=== PATIENT | female | born 1940 | race Hispanic/Latino ===

== ENCOUNTER → 2018-07-13 | Outpatient (CLI) | payer MEDICARE | END | disposition home or self-care (01) | LOC: RAH 15:38 | PROVIDERS: ATTEND Nurse Practitioner Family | DX: R05 Cough (principal) | CPT/HCPCS: 71046 ==

== ENCOUNTER → 2018-10-01 | Outpatient (CLI) | payer MEDICARE | END | disposition home or self-care (01) | LOC: RAH 16:40 | PROVIDERS: ATTEND Nurse Practitioner Family | DX: R05 Cough (principal); I70.0 Atherosclerosis of aorta; M47.814 Spondylosis without myelopathy or radiculopathy, thoracic region | CPT/HCPCS: 71045 ==

== ENCOUNTER 2020-09-04 10:56 | Inpatient (IN) | payer MEDICARE ==
[~2020-09-04] VITALS: Ht 157.5 cm; Wt 76.9 kg
[~2020-09-04 10:56] MED LIST: ALBU8.5H8 IH; BENZ-51 PO; BUDE10.2 IH; SERT25TA5 PO
[2020-09-04 11:37] LABS: BASOPHILS % (AUTO) 0.4 % (0.0-5.0); EOSINOPHILS % (AUTO) 2.8 % (0.0-8.0); HEMATOCRIT 38.5 % (36-48); LYMPHOCYTES % (AUTO) 12.7 % (21.0-51.0); MEAN CORPUSCULAR HGB CONC 30.4 g/dL (32.0-36.0); MEAN CORPUSCULAR VOLUME 95.5 fL (79-99); MONOCYTES % (AUTO) 5.6 % (3.0-13.0); NEUTROPHILS % (AUTO) 77.6 % (40.0-77.0); PLATELET COUNT (AUTO) 143 K/uL (130-400); RED BLOOD CELL COUNT(AUTO) 4.03 MIL/uL (4.00-5.50); RED CELL DISTRIBUTION WIDTH 12.7 % (11.0-15.5); WHITE BLOOD COUNT (AUTO) 7.8 K/uL (4.8-10.8)
[2020-09-04 11:52] LABS: CARBON DIOXIDE 36 mmol/L (21-32); CHLORIDE 103 mmol/L (101-111); CREATININE 1.5 mg/dL (0.5-1.5); GLOMERULAR FILTR. RATE CALC 36 mL/min (>60); GLUCOSE,RANDOM 121 mg/dL (70-105); POTASSIUM 5.2 mmol/L (3.5-5.1); SODIUM SERUM 142 mmol/L (136-145); UREA NITROGEN, BLOOD 24 mg/dL (7-18)
[2020-09-04 11:56] LABS: B-TYPE NATRIURETIC PEPTIDE 335 pg/mL (0-100)
[2020-09-04 12:07] LABS: INR 0.96 (0.85-1.15); PROTHROMBIN TIME 10.3 SEC (9.6-11.6)
[2020-09-04 12:08] LABS: ALANINE AMINOTRANSFERASE 11 U/L (12-78); ALBUMIN 3.2 g/dL (3.5-5.0); ASPARTATE AMINOTRANSFERASE 28 U/L (10-37); BILIRUBIN,TOTAL 0.3 mg/dL (0.2-1.0); CREATINE KINASE, TOTAL 89 U/L (21-232); MYOGLOBIN 48 ng/mL (10-92); PARTIAL THROMBOPLASTIN TIME 26.2 SEC (26.3-35.5); TOTAL PROTEIN, SERUM 7.2 g/dL (6.0-8.3); TROPONIN I < 0.04 ng/mL (0.00-0.06)
[2020-09-04 13:12] LABS: ABG BASE EXCESS 4.5 mmol/L (-2.0-3.0); ABG HCO3 36.3 mmol/L (21.0-28.0); ABG OXYGEN SATURATION 98.6 % (95.0-99.0); ABG PCO2 94 mmHg (32-45)
[2020-09-04] MEDS ORDERED: DEXTROSE 50%-WATER 50 ML DISP.SYRIN IV SCH (14:15)
[2020-09-04] MEDS ORDERED: INSULIN HUMULIN R 100 UNIT/ML 3ML SQ SCH (14:15)
[2020-09-04] MEDS ORDERED: ERGOCALCIFEROL (VITAMIN D2) 50,000 UNIT CAPSULE PO ONE (14:30)
[2020-09-04] MEDS ORDERED: LACTULOSE 20 GM/30 ML UDCUP PO PRN (14:30)
[2020-09-04] MEDS ORDERED: DIPHENHYDRAMINE HCL 25 MG CAPSULE PO PRN (14:30)
[2020-09-04] MEDS ORDERED: ACETAMINOPHEN 325 MG TAB PO PRN ×2 (14:30)
[2020-09-04] MEDS: ASCORBIC ACID 500 MG TAB PO SCH (14:30)
[2020-09-04] MEDS ORDERED: DEXAMETHASONE SOD PHOSPHATE 4 MG/ML 1ML VIAL IVP SCH (14:30)
[2020-09-04] MEDS ORDERED: DiphenhydrAMINE HCL 50 MG/ML VIAL IV PRN (14:30)
[2020-09-04] MEDS ORDERED: GUAIFENESIN-DM 200/20 MG 10 ML PO PRN (14:30)
[2020-09-04] MEDS ORDERED: NITROGLYCERIN 0.4 MG SL TAB SL PRN (14:30)
[2020-09-04] MEDS ORDERED: CEFTRIAXONE SODIUM 1 GM IVP SCH (14:30)
[2020-09-04] MEDS ORDERED: ONDANSETRON HCL 4 MG/2 ML VIAL IV PRN (14:30)
[2020-09-04] MEDS ORDERED: MAG HYDROX/AL HYDROX/SIMETH ES 30 ML SUSP UDCUP PO PRN (14:30)
[2020-09-04] MEDS ORDERED: ASCORBIC ACID 500 MG TAB ONE (15:20)
[2020-09-04] MEDS ORDERED: ALBUTEROL INHALER 90MCG/INH IH ONE (15:20)
[2020-09-04] MEDS ORDERED: DEXAMETHASONE SOD PHOSPHATE 10MG/ML 1ML VIAL ONE (15:20)
[2020-09-04] MEDS ORDERED: ERGOCALCIFEROL (VITAMIN D2) 50,000 UNIT CAPSULE ONE (15:20)
[2020-09-04] MEDS ORDERED: CEFTRIAXONE SODIUM 1 GM ONE (15:21)
[2020-09-04] MEDS ORDERED: IPRATROPIUM 0.5 MG/2.5 ML INH IH SCH (18:00)
[2020-09-04] MEDS: ALBUTEROL INHALER 90MCG/INH IH SCH ×2 (18:00→22:00)
[2020-09-04] MEDS ORDERED: DOXYCYCLINE HYCLATE 100 MG TABLET PO SCH (21:00)
[2020-09-05] MEDS: ALBUTEROL INHALER 90MCG/INH IH SCH ×6 (02:00→22:00)
[2020-09-05] MEDS: ASCORBIC ACID 500 MG TAB PO SCH ×2 (02:30→14:30)
[2020-09-05 07:10] LABS: BASOPHILS % (AUTO) 0.3 % (0.0-5.0); LYMPHOCYTES % (AUTO) 5.3 % (21.0-51.0); MEAN CORPUSCULAR HEMOGLOBIN 28.7 pg (27.0-33.0); MEAN CORPUSCULAR HGB CONC 30.3 g/dL (32.0-36.0); MEAN CORPUSCULAR VOLUME 94.9 fL (79-99); MONOCYTES % (AUTO) 3.6 % (3.0-13.0); PLATELET COUNT (AUTO) 129 K/uL (130-400); RED CELL DISTRIBUTION WIDTH 12.4 % (11.0-15.5); WHITE BLOOD COUNT (AUTO) 6.8 K/uL (4.8-10.8)
[2020-09-05 07:54] LABS: ALANINE AMINOTRANSFERASE 20 U/L (12-78); ASPARTATE AMINOTRANSFERASE 16 U/L (10-37); BILIRUBIN,TOTAL 0.2 mg/dL (0.2-1.0); CARBON DIOXIDE 37 mmol/L (21-32); CHLORIDE 105 mmol/L (101-111); CREATININE 1.4 mg/dL (0.5-1.5); GLOMERULAR FILTR. RATE CALC 38 mL/min (>60); GLUCOSE,RANDOM 106 mg/dL (70-105); LACTATE DEHYDROGENASE 187 U/L (81-234); POTASSIUM 5.3 mmol/L (3.5-5.1); SODIUM SERUM 143 mmol/L (136-145); TOTAL PROTEIN, SERUM 6.9 g/dL (6.0-8.3); UREA NITROGEN, BLOOD 27 mg/dL (7-18)
[2020-09-05] MEDS ORDERED: ENOXAPARIN SODIUM 40 MG/0.4 ML SYRINGE SQ ONE (08:08)
[2020-09-05] MEDS ORDERED: ZINC SULFATE 220 CAPSULE ONE (08:08)
[2020-09-05] MEDS ORDERED: DOXYCYCLINE HYCLATE 100 MG TABLET PO ONE ×2 (08:08→20:33)
[2020-09-05] MEDS ORDERED: SODIUM POLYSTYRENE SULFONATE 15 GM/60 ML ML PO SCH (08:30)
[2020-09-05] MEDS: ENOXAPARIN SODIUM 40 MG/0.4 ML SYRINGE SQ SCH (09:00)
[2020-09-05] MEDS: ZINC SULFATE 220 CAPSULE PO SCH (09:00)
[2020-09-05] MEDS ORDERED: DiphenhydrAMINE HCL 50 MG/ML VIAL ONE ×3 (09:59→23:57)
[2020-09-05] MEDS ORDERED: SODIUM POLYSTYRENE SULFONATE 15 GM/60 ML ML ONE (10:01)
[2020-09-05 10:58] LABS: ABG BASE EXCESS 6.2 mmol/L (-2.0-3.0); ABG HCO3 37.1 mmol/L (21.0-28.0); ABG OXYGEN SATURATION 97.2 % (95.0-99.0); ABG PCO2 97 mmHg (32-45)
[2020-09-05] MEDS ORDERED: PHARMACY COMMUNICATION MISC SCH (11:45)
[2020-09-05] MEDS ORDERED: SODIUM ZIRCONIUM CYCLOSILICATE 10 GM POWD.PACK PO SCH (11:45)
[2020-09-05] MEDS ORDERED: DEXAMETHASONE SOD PHOSPHATE 4 MG/ML 1ML VIAL ONE (14:13)
[2020-09-05] MEDS ORDERED: ASCORBIC ACID 500 MG TAB ONE (14:13)
[2020-09-05] MEDS ORDERED: CEFTRIAXONE SODIUM 1 GM ONE (14:14)
[2020-09-06] MEDS: ALBUTEROL INHALER 90MCG/INH IH SCH ×6 (02:00→22:00)
[2020-09-06] MEDS: ASCORBIC ACID 500 MG TAB PO SCH ×2 (02:30→14:30)
[2020-09-06] MEDS ORDERED: CEFTRIAXONE SODIUM 1 GM ONE ×2 (03:09→14:17)
[2020-09-06] MEDS ORDERED: DEXAMETHASONE SOD PHOSPHATE 10MG/ML 1ML VIAL ONE (03:09)
[2020-09-06 06:33] LABS: BASOPHILS % (AUTO) 0.1 % (0.0-5.0); HEMATOCRIT 33.5 % (36-48); MEAN CORPUSCULAR HEMOGLOBIN 28.8 pg (27.0-33.0); MEAN CORPUSCULAR HGB CONC 31.3 g/dL (32.0-36.0); MONOCYTES % (AUTO) 1.8 % (3.0-13.0); NEUTROPHILS % (AUTO) 92.1 % (40.0-77.0); PLATELET COUNT (AUTO) 129 K/uL (130-400); RED BLOOD CELL COUNT(AUTO) 3.64 MIL/uL (4.00-5.50); RED CELL DISTRIBUTION WIDTH 12.6 % (11.0-15.5); WHITE BLOOD COUNT (AUTO) 7.8 K/uL (4.8-10.8)
[2020-09-06 06:38] LABS: ABG HCO3 36.9 mmol/L (21.0-28.0); ABG OXYGEN SATURATION 96.6 % (95.0-99.0); ABG PCO2 70 mmHg (32-45)
[2020-09-06 06:51] LABS: ALBUMIN 2.9 g/dL (3.5-5.0); BILIRUBIN,TOTAL 0.3 mg/dL (0.2-1.0); CREATININE 1.6 mg/dL (0.5-1.5); TOTAL PROTEIN, SERUM 6.5 g/dL (6.0-8.3)
[2020-09-06] MEDS: ENOXAPARIN SODIUM 40 MG/0.4 ML SYRINGE SQ SCH (09:00)
[2020-09-06] MEDS: DEXAMETHASONE SOD PHOSPHATE 4 MG/ML 1ML VIAL IVP SCH (09:00)
[2020-09-06] MEDS: FLUTICASONE/VILANTEROL 1 EACH AER.POW.BA IH SCH (09:00)
[2020-09-06] MEDS: ZINC SULFATE 220 CAPSULE PO SCH (09:00)
[2020-09-06] MEDS ORDERED: DEXAMETHASONE SOD PHOSPHATE 4 MG/ML 1ML VIAL ONE (09:37)
[2020-09-06] MEDS ORDERED: DOXYCYCLINE HYCLATE 100 MG TABLET PO ONE (09:37)
[2020-09-06] MEDS ORDERED: ZINC SULFATE 220 CAPSULE ONE (09:38)
[2020-09-06] MEDS ORDERED: ENOXAPARIN SODIUM 40 MG/0.4 ML SYRINGE SQ ONE (09:38)
[2020-09-06] MEDS ORDERED: ENALAPRILAT DIHYDRATE 1.25MG/ML 1ML VIAL IV PRN (11:15)
[2020-09-06] MEDS ORDERED: ASCORBIC ACID 500 MG TAB ONE (14:17)
[2020-09-07] MEDS: ALBUTEROL INHALER 90MCG/INH IH SCH ×6 (02:00→22:00)
[2020-09-07] MEDS: ASCORBIC ACID 500 MG TAB PO SCH ×2 (02:30→14:30)
[2020-09-07 04:05] LABS: ABG BASE EXCESS 8.5 mmol/L (-2.0-3.0); ABG HCO3 35.1 mmol/L (21.0-28.0); ABG PCO2 56 mmHg (32-45)
[2020-09-07 04:34] LABS: BASOPHILS % (AUTO) 0.1 % (0.0-5.0); EOSINOPHILS % (AUTO) 0.1 % (0.0-8.0); HEMATOCRIT 38.1 % (36-48); LYMPHOCYTES % (AUTO) 16.2 % (21.0-51.0); MEAN CORPUSCULAR HEMOGLOBIN 28.5 pg (27.0-33.0); MONOCYTES % (AUTO) 7.7 % (3.0-13.0); NEUTROPHILS % (AUTO) 74.7 % (40.0-77.0); PLATELET COUNT (AUTO) 150 K/uL (130-400); RED BLOOD CELL COUNT(AUTO) 4.28 MIL/uL (4.00-5.50); RED CELL DISTRIBUTION WIDTH 12.5 % (11.0-15.5); WHITE BLOOD COUNT (AUTO) 8.1 K/uL (4.8-10.8)
[2020-09-07 04:52] LABS: ALBUMIN 3.3 g/dL (3.5-5.0); BILIRUBIN,TOTAL 0.3 mg/dL (0.2-1.0); CREATININE 1.5 mg/dL (0.5-1.5); POTASSIUM 4.2 mmol/L (3.5-5.1); TOTAL PROTEIN, SERUM 7.2 g/dL (6.0-8.3)
[2020-09-07] MEDS: FLUTICASONE/VILANTEROL 1 EACH AER.POW.BA IH SCH (09:00)
[2020-09-07] MEDS: ZINC SULFATE 220 CAPSULE PO SCH (09:00)
[2020-09-07] MEDS: ACETAZOLAMIDE SODIUM 500 MG VIAL IV SCH (09:00)
[2020-09-07] MEDS: DEXAMETHASONE SOD PHOSPHATE 4 MG/ML 1ML VIAL IVP SCH (09:00)
[2020-09-07] MEDS: ENOXAPARIN SODIUM 40 MG/0.4 ML SYRINGE SQ SCH (09:00)
[2020-09-07] MEDS ORDERED: ZINC SULFATE 220 CAPSULE ONE (09:13)
[2020-09-07] MEDS ORDERED: DEXAMETHASONE SOD PHOSPHATE 4 MG/ML 1ML VIAL ONE (09:13)
[2020-09-07] MEDS ORDERED: ENOXAPARIN SODIUM 40 MG/0.4 ML SYRINGE SQ ONE (09:14)
[2020-09-07] MEDS ORDERED: ACETAZOLAMIDE SODIUM 500 MG VIAL ONE (09:35)
[2020-09-07 14:54] LABS: APPEARANCE,URINE Clear (CLEAR); BILIRUBIN,URINE Negative (NEGATIVE); COLOR,URINE Yellow (YELLOW); GLUCOSE, URINE (UA) Negative (NEGATIVE); KETONES,URINE Negative (NEGATIVE); LEUKOCYTE ESTERASE ,URINE Negative (NEGATIVE); NITRATE,URINE Negative (NEGATIVE); OCCULT BLOOD,URINE Negative (NEGATIVE); PH,URINE 7.5 (5.0-8.0); PROTEIN,URINE POS 2+ mg/dL (NEGATIVE); UROBILINOGEN,URINE 0.2 mg/dL (0.2-1.0)
[2020-09-07 15:12] LABS: RBC,URINE 0-1 /HPF (0-1); WBC,URINE 0-1 /HPF (0-1)
[2020-09-07 15:13] LABS: BACTERIA,URINE Rare /HPF (None Seen); MUCUS,URINE Moderate LPF (None Seen); SQUAMOUS EPITHELIAL CELL,UR Few /HPF (0-2)
[2020-09-07 19:16] LABS: HEMOGLOBIN A1C 5.7 % (4.0-6.0)
[2020-09-07 20:00] VITALS: BP 190/90
[2020-09-07 21:10] VITALS: BP 147/91
[2020-09-08] VITALS (7 sets, daily range): BP systolic 117–162; BP diastolic 55–97
[2020-09-08] MEDS: ALBUTEROL INHALER 90MCG/INH IH SCH ×6 (01:21→21:00)
[2020-09-08] MEDS: ASCORBIC ACID 500 MG TAB PO SCH ×3 (01:21→21:00)
[2020-09-08] MEDS ORDERED: SIMV80TA91 PO (01:23)
[2020-09-08] MEDS ORDERED: LOSA100T58 PO (01:26)
[2020-09-08] MEDS ORDERED: TEMA7.5C19 PO (01:29)
[2020-09-08 04:24] LABS: AMMONIA 12 umol/L (11-32)
[2020-09-08 05:40] LABS: BASOPHILS % (AUTO) 0.2 % (0.0-5.0); EOSINOPHILS % (AUTO) 0.1 % (0.0-8.0); HEMATOCRIT 38.4 % (36-48); LYMPHOCYTES % (AUTO) 14.7 % (21.0-51.0); MEAN CORPUSCULAR HGB CONC 31.8 g/dL (32.0-36.0); MEAN CORPUSCULAR VOLUME 91.2 fL (79-99); MONOCYTES % (AUTO) 7.8 % (3.0-13.0); NEUTROPHILS % (AUTO) 76.7 % (40.0-77.0); PLATELET COUNT (AUTO) 164 K/uL (130-400); RED BLOOD CELL COUNT(AUTO) 4.21 MIL/uL (4.00-5.50); RED CELL DISTRIBUTION WIDTH 12.7 % (11.0-15.5); WHITE BLOOD COUNT (AUTO) 8.3 K/uL (4.8-10.8)
[2020-09-08 05:47] LABS: CREATININE 1.5 mg/dL (0.5-1.5); CRP QUANTITATIVE 4.2 mg/L (0.00-9.0); POTASSIUM 4.4 mmol/L (3.5-5.1)
[2020-09-08] MEDS: DEXAMETHASONE SOD PHOSPHATE 4 MG/ML 1ML VIAL IVP SCH (08:40)
[2020-09-08] MEDS: ZINC SULFATE 220 CAPSULE PO SCH (08:41)
[2020-09-08] MEDS: FLUTICASONE/VILANTEROL 1 EACH AER.POW.BA IH SCH (08:41)
[2020-09-08] MEDS: PANTOPRAZOLE 40 MG/VIAL IVP SCH (08:41)
[2020-09-08] MEDS: ENOXAPARIN SODIUM 40 MG/0.4 ML SYRINGE SQ SCH (08:41)
[2020-09-08] MEDS: ACETAZOLAMIDE SODIUM 500 MG VIAL IV SCH (09:00)
[2020-09-08] MEDS ORDERED: IVERMECTIN 3 MG TAB PO SCH (21:00)
[2020-09-09] MEDS: ALBUTEROL INHALER 90MCG/INH IH SCH ×6 (03:08→21:03)
[2020-09-09 03:25] VITALS: BP 126/56
[2020-09-09 06:22] LABS: BASOPHILS % (AUTO) 0.2 % (0.0-5.0); EOSINOPHILS % (AUTO) 1.1 % (0.0-8.0); HEMATOCRIT 42.3 % (36-48); LYMPHOCYTES % (AUTO) 17.9 % (21.0-51.0); MEAN CORPUSCULAR HEMOGLOBIN 28.7 pg (27.0-33.0); MEAN CORPUSCULAR HGB CONC 31.7 g/dL (32.0-36.0); MEAN CORPUSCULAR VOLUME 90.6 fL (79-99); MONOCYTES % (AUTO) 8.2 % (3.0-13.0); NEUTROPHILS % (AUTO) 71.9 % (40.0-77.0); PLATELET COUNT (AUTO) 142 K/uL (130-400); RED BLOOD CELL COUNT(AUTO) 4.67 MIL/uL (4.00-5.50); RED CELL DISTRIBUTION WIDTH 12.9 % (11.0-15.5); WHITE BLOOD COUNT (AUTO) 8.5 K/uL (4.8-10.8)
[2020-09-09 06:31] LABS: CARBON DIOXIDE 37 mmol/L (21-32); CHLORIDE 101 mmol/L (101-111); CREATININE 1.6 mg/dL (0.5-1.5); GLOMERULAR FILTR. RATE CALC 33 mL/min (>60); GLUCOSE,RANDOM 91 mg/dL (70-105); SODIUM SERUM 139 mmol/L (136-145); UREA NITROGEN, BLOOD 50 mg/dL (7-18)
[2020-09-09 07:00] VITALS: BP 119/59
[2020-09-09] MEDS: DEXAMETHASONE SOD PHOSPHATE 4 MG/ML 1ML VIAL IVP SCH (09:30)
[2020-09-09] MEDS: PANTOPRAZOLE 40 MG/VIAL IVP SCH (09:30)
[2020-09-09] MEDS: ACETAZOLAMIDE SODIUM 500 MG VIAL IV SCH (09:30)
[2020-09-09] MEDS: ZINC SULFATE 220 CAPSULE PO SCH (09:30)
[2020-09-09] MEDS: FLUTICASONE/VILANTEROL 1 EACH AER.POW.BA IH SCH (09:31)
[2020-09-09] MEDS: ENOXAPARIN SODIUM 40 MG/0.4 ML SYRINGE SQ SCH ×2 (09:31→21:03)
[2020-09-09 10:30] VITALS: BP 128/70
[2020-09-09] MEDS: ASCORBIC ACID 500 MG TAB PO SCH ×2 (14:50→21:03)
[2020-09-09 15:30] VITALS: BP 127/67
[2020-09-09 20:00] VITALS: BP 103/68
[2020-09-10] VITALS (7 sets, daily range): BP systolic 108–135; BP diastolic 49–73
[2020-09-10] MEDS: ALBUTEROL INHALER 90MCG/INH IH SCH ×6 (02:00→21:24)
[2020-09-10 06:21] LABS: CREATININE 1.9 mg/dL (0.5-1.5); CRP QUANTITATIVE 8.5 mg/L (0.00-9.0); POTASSIUM 4.5 mmol/L (3.5-5.1)
[2020-09-10] MEDS: PANTOPRAZOLE 40 MG/VIAL IVP SCH (08:56)
[2020-09-10] MEDS: DEXAMETHASONE SOD PHOSPHATE 4 MG/ML 1ML VIAL IVP SCH (08:57)
[2020-09-10] MEDS: ACETAZOLAMIDE SODIUM 500 MG VIAL IV SCH (09:00)
[2020-09-10] MEDS: ENOXAPARIN SODIUM 40 MG/0.4 ML SYRINGE SQ SCH ×2 (09:01→21:26)
[2020-09-10] MEDS: ZINC SULFATE 220 CAPSULE PO SCH (09:02)
[2020-09-10] MEDS: FLUTICASONE/VILANTEROL 1 EACH AER.POW.BA IH SCH (09:05)
[2020-09-10] MEDS: LEVETIRACETAM 250 MG TABLET PO SCH ×2 (13:45→21:26)
[2020-09-10] MEDS: ASCORBIC ACID 500 MG TAB PO SCH ×2 (13:45→21:26)
[2020-09-11] MEDS: ALBUTEROL INHALER 90MCG/INH IH SCH ×6 (02:00→21:21)
[2020-09-11 04:00] VITALS: BP 126/70
[2020-09-11 06:07] LABS: BASOPHILS % (AUTO) 0.1 % (0.0-5.0); EOSINOPHILS % (AUTO) 0.3 % (0.0-8.0); HEMATOCRIT 37.8 % (36-48); MEAN CORPUSCULAR HEMOGLOBIN 28.8 pg (27.0-33.0); MEAN CORPUSCULAR HGB CONC 31.7 g/dL (32.0-36.0); MEAN CORPUSCULAR VOLUME 90.6 fL (79-99); MONOCYTES % (AUTO) 7.1 % (3.0-13.0); NEUTROPHILS % (AUTO) 81.1 % (40.0-77.0); PLATELET COUNT (AUTO) 158 K/uL (130-400); RED BLOOD CELL COUNT(AUTO) 4.17 MIL/uL (4.00-5.50); RED CELL DISTRIBUTION WIDTH 12.8 % (11.0-15.5)
[2020-09-11 06:53] LABS: CREATININE 2.1 mg/dL (0.5-1.5); POTASSIUM 3.9 mmol/L (3.5-5.1)
[2020-09-11 07:41] VITALS: BP 103/47
[2020-09-11] MEDS: ACETAZOLAMIDE SODIUM 500 MG VIAL IV SCH (09:00)
[2020-09-11] MEDS: FLUTICASONE/VILANTEROL 1 EACH AER.POW.BA IH SCH (09:00)
[2020-09-11] MEDS: PANTOPRAZOLE 40 MG/VIAL IVP SCH (10:05)
[2020-09-11] MEDS: ZINC SULFATE 220 CAPSULE PO SCH (10:05)
[2020-09-11] MEDS: DEXAMETHASONE SOD PHOSPHATE 4 MG/ML 1ML VIAL IVP SCH (10:05)
[2020-09-11] MEDS: LEVETIRACETAM 250 MG TABLET PO SCH ×2 (10:05→21:17)
[2020-09-11] MEDS: ENOXAPARIN SODIUM 40 MG/0.4 ML SYRINGE SQ SCH ×2 (10:21→21:16)
[2020-09-11 11:35] VITALS: BP 99/55
[2020-09-11] MEDS: ASCORBIC ACID 500 MG TAB PO SCH ×2 (14:39→21:17)
[2020-09-11 16:00] VITALS: BP 113/54
[2020-09-11 19:15] VITALS: BP 129/53
[2020-09-11 23:45] VITALS: BP 113/57
[2020-09-12] MEDS: ALBUTEROL INHALER 90MCG/INH IH SCH ×6 (02:00→20:48)
[2020-09-12 03:40] VITALS: BP 102/54
[2020-09-12 08:13] VITALS: BP 116/63
[2020-09-12] MEDS: FLUTICASONE/VILANTEROL 1 EACH AER.POW.BA IH SCH (09:00)
[2020-09-12] MEDS: ENOXAPARIN SODIUM 40 MG/0.4 ML SYRINGE SQ SCH ×2 (09:00→20:48)
[2020-09-12 09:23] LABS: BASOPHILS % (AUTO) 0.1 % (0.0-5.0); EOSINOPHILS % (AUTO) 0.6 % (0.0-8.0); HEMATOCRIT 38.8 % (36-48); LYMPHOCYTES % (AUTO) 13.4 % (21.0-51.0); MEAN CORPUSCULAR HEMOGLOBIN 28.7 pg (27.0-33.0); MEAN CORPUSCULAR HGB CONC 30.9 g/dL (32.0-36.0); MEAN CORPUSCULAR VOLUME 92.8 fL (79-99); MONOCYTES % (AUTO) 6.6 % (3.0-13.0); NEUTROPHILS % (AUTO) 78.6 % (40.0-77.0); PLATELET COUNT (AUTO) 170 K/uL (130-400); RED BLOOD CELL COUNT(AUTO) 4.18 MIL/uL (4.00-5.50); RED CELL DISTRIBUTION WIDTH 12.8 % (11.0-15.5)
[2020-09-12 09:36] LABS: CREATININE 2.2 mg/dL (0.5-1.5); POTASSIUM 3.9 mmol/L (3.5-5.1)
[2020-09-12] MEDS: ZINC SULFATE 220 CAPSULE PO SCH (11:05)
[2020-09-12] MEDS: DEXAMETHASONE SOD PHOSPHATE 4 MG/ML 1ML VIAL IVP SCH (11:05)
[2020-09-12] MEDS: PANTOPRAZOLE 40 MG/VIAL IVP SCH (11:05)
[2020-09-12] MEDS: LEVETIRACETAM 250 MG TABLET PO SCH ×2 (11:06→20:46)
[2020-09-12] MEDS: ASCORBIC ACID 500 MG TAB PO SCH ×2 (11:06→20:46)
[2020-09-12 11:20] VITALS: BP 129/63
[2020-09-12 13:03] LABS: PHOSPHORUS 4.3 mg/dL (2.5-4.9)
[2020-09-12 16:07] VITALS: BP 99/40
[2020-09-12 19:58] VITALS: BP 117/48
[2020-09-13] MEDS: ALBUTEROL INHALER 90MCG/INH IH SCH ×4 (01:10→14:27)
[2020-09-13 04:50] VITALS: BP 125/60
[2020-09-13 05:49] LABS: HEMATOCRIT 36.5 % (36-48); MEAN CORPUSCULAR HGB CONC 31.5 g/dL (32.0-36.0); MEAN CORPUSCULAR VOLUME 91.9 fL (79-99); PLATELET COUNT (AUTO) 144 K/uL (130-400); RED BLOOD CELL COUNT(AUTO) 3.97 MIL/uL (4.00-5.50); RED CELL DISTRIBUTION WIDTH 12.8 % (11.0-15.5); WHITE BLOOD COUNT (AUTO) 8.6 K/uL (4.8-10.8)
[2020-09-13 06:06] LABS: % IRON SATURATION 33.8 % (22-44)
[2020-09-13 06:07] LABS: ALBUMIN 2.9 g/dL (3.5-5.0); BILIRUBIN,TOTAL 0.2 mg/dL (0.2-1.0); CREATININE 2.3 mg/dL (0.5-1.5); POTASSIUM 4.6 mmol/L (3.5-5.1); TOTAL PROTEIN, SERUM 6.1 g/dL (6.0-8.3)
[2020-09-13 07:30] LABS: BASOPHILS % (MANUAL) 1 % (0-2); LYMPHOCYTES % (MANUAL) 6 % (22-44); MAN.DIFF COMMENT-IMPRESSION MANUAL DIFFERENTIAL; MONOCYTES % (MANUAL) 4 % (2-9); SEGMENTED NEUTROPHILS % 89 % (40-70)
[2020-09-13 07:33] LABS: PLATELET MORPHOLOGY COMMENT SLIGHTLY DECREASED
[2020-09-13 08:00] VITALS: BP 110/57
[2020-09-13] MEDS: FLUTICASONE/VILANTEROL 1 EACH AER.POW.BA IH SCH (09:50)
[2020-09-13] MEDS: PANTOPRAZOLE 40 MG/VIAL IVP SCH (09:51)
[2020-09-13] MEDS: ZINC SULFATE 220 CAPSULE PO SCH (09:51)
[2020-09-13] MEDS: LEVETIRACETAM 250 MG TABLET PO SCH (09:51)
[2020-09-13] MEDS: DEXAMETHASONE SOD PHOSPHATE 4 MG/ML 1ML VIAL IVP SCH (09:51)
[2020-09-13] MEDS: ENOXAPARIN SODIUM 40 MG/0.4 ML SYRINGE SQ SCH (09:51)
[2020-09-13 12:00] VITALS: BP 115/57
[2020-09-13] MEDS: ASCORBIC ACID 500 MG TAB PO SCH (15:02)
[2020-09-13 16:00] VITALS: BP 115/91
[2020-09-13] MEDS ORDERED: DEXA6TAB7 PO (16:01)
[2020-09-13] MEDS ORDERED: APIX2.5T PO (16:01)
[2020-09-13] MEDS ORDERED: AMLO2.5T4 PO (16:01)
[2020-09-13] MEDS ORDERED: LEVE250T PO (16:16)
[2020-09-13 18:02] LABS: APPEARANCE,URINE Clear (CLEAR); BILIRUBIN,URINE Negative (NEGATIVE); COLOR,URINE Yellow (YELLOW); GLUCOSE, URINE (UA) Negative (NEGATIVE); KETONES,URINE Negative (NEGATIVE); LEUKOCYTE ESTERASE ,URINE Negative (NEGATIVE); NITRATE,URINE Negative (NEGATIVE); OCCULT BLOOD,URINE Negative (NEGATIVE); PROTEIN,URINE Trace mg/dL (NEGATIVE); UROBILINOGEN,URINE 0.2 mg/dL (0.2-1.0)
[2020-09-13 18:17] LABS: RBC,URINE 0-1 /HPF (0-1)
[2020-09-13 18:18] LABS: BACTERIA,URINE Rare /HPF (None Seen); SQUAMOUS EPITHELIAL CELL,UR Rare /HPF (0-2); WBC,URINE 0-1 /HPF (0-1)
== END 2020-09-13 17:58 | disposition home or self-care (01) | DRG 177 ==
LOC: EDH 10:56 → EDHIP 14:22 → 4BH 09-06 22:28 → EDHIP 09-07 01:28 → 2DH 09-07 15:09
PROVIDERS: ADMIT Family Medicine; ATTEND Family Medicine
PROC: XW13325 Transfusion of Convalescent Plasma (Nonautologous) into Peripheral Vein, Percutaneous Approach, New Technology Group 5 (ICD-10-PCS; principal; 2020-09-04)
PROC: 5A09357 Assistance with Respiratory Ventilation, Less than 24 Consecutive Hours, Continuous Positive Airway Pressure (ICD-10-PCS; 2020-09-05)
PROC: 5A09357 Assistance with Respiratory Ventilation, Less than 24 Consecutive Hours, Continuous Positive Airway Pressure (ICD-10-PCS; 2020-09-06)
PROC: 5A09357 Assistance with Respiratory Ventilation, Less than 24 Consecutive Hours, Continuous Positive Airway Pressure (ICD-10-PCS; 2020-09-07)
DX: U07.1 COVID-19 (principal); J96.22 Acute and chronic respiratory failure with hypercapnia; J12.82 Pneumonia due to coronavirus disease 2019; J96.21 Acute and chronic respiratory failure with hypoxia; J44.1 Chronic obstructive pulmonary disease with (acute) exacerbation; J44.0 Chronic obstructive pulmonary disease with (acute) lower respiratory infection; N17.9 Acute kidney failure, unspecified; D64.9 Anemia, unspecified; E11.9 Type 2 diabetes mellitus without complications; E87.5 Hyperkalemia; Z87.891 Personal history of nicotine dependence; I10 Essential (primary) hypertension; Z99.81 Dependence on supplemental oxygen; Z79.899 Other long term (current) drug therapy; Z79.84 Long term (current) use of oral hypoglycemic drugs
CPT/HCPCS: 36415; 36600; 70450; 71045; 71250; 80048; 80053; 81001; 82140; 82435; 82550; 82728; 82803; 82947; 82948; 83036; 83540; 83550; 83605; 83615; 83874; 83880; 84100; 84132; 84145; 84295; 84484; 85018; 85025; 85378; 85610; 85730; 86140; 86900; 86901; 86927; 87040; 87088; 87426; 93005; 94660; 95819; C9113; G0378; J0696; J1100; J1120; J1200; J1650; J3490

== ENCOUNTER 2023-01-30 08:46 | Emergency (ER) | payer MEDICARE ==
[~2023-01-30] VITALS: Ht 157.5 cm; Wt 68.0 kg
[~2023-01-30 08:46] MED LIST changes: -ALBU8.5H8 IH; +AMLO2.5T4 PO; +APIX2.5T PO; -BENZ-51 PO; +DEXA6TAB7 PO; +LEVE250T PO; +SERT-438 PO; -SERT25TA5 PO; +SIMV80TA91 PO; +TEMA7.5C19 PO
[2023-01-30] MEDS ORDERED: PANT40TA54 PO (09:04)
[2023-01-30] MEDS ORDERED: SERT-438 PO (09:04)
[2023-01-30] MEDS ORDERED: IRON1CAP30 PO (09:04)
[2023-01-30] MEDS ORDERED: TEMA7.5C19 PO (09:04)
[2023-01-30] MEDS ORDERED: HYDR12.54 PO (09:04)
[2023-01-30] MEDS ORDERED: ALBUTEROL 0.083% 2.5 MG/3 ML INH IH ONE (09:30)
[2023-01-30] MEDS ORDERED: ASPIRIN 325MG TAB PO ONE (09:30)
[2023-01-30] MEDS ORDERED: NITROGLYCERIN 1GM OINT 1 INCH/1GM TD ONE (09:30)
[2023-01-30 09:31] LABS: BASOPHILS % (AUTO) 0.5 % (0.0-5.0); EOSINOPHILS % (AUTO) 1.4 % (0.0-8.0); HEMATOCRIT 29.3 % (36-48); LYMPHOCYTES % (AUTO) 8.2 % (21.0-51.0); MEAN CORPUSCULAR HEMOGLOBIN 26.2 pg (27.0-33.0); MEAN CORPUSCULAR HGB CONC 31.1 g/dL (32.0-36.0); MEAN CORPUSCULAR VOLUME 84.4 fL (79-99); NEUTROPHILS % (AUTO) 82.1 % (40.0-77.0); PLATELET COUNT (AUTO) 196 K/uL (130-400); RED BLOOD CELL COUNT(AUTO) 3.47 MIL/uL (4.00-5.50); RED CELL DISTRIBUTION WIDTH 13.2 % (11.0-15.5); WHITE BLOOD COUNT (AUTO) 6.5 K/uL (4.8-10.8)
[2023-01-30 09:39] LABS: CREATININE 1.6 mg/dL (0.5-1.5); POTASSIUM 4.4 mmol/L (3.5-5.1)
[2023-01-30 09:44] LABS: ALBUMIN 2.7 g/dL (3.5-5.0); TOTAL PROTEIN, SERUM 7.4 g/dL (6.0-8.3)
[2023-01-30 09:55] VITALS: PULSE 78; RESP 20
[2023-01-30 13:40] VITALS: BP 142/75; PULSE 77; RESP 17
[2023-01-30] MEDS ORDERED: NITR0.4T50 SL (14:31)
[2023-01-30] MEDS ORDERED: AUD IH (14:31)
[2023-01-30] MEDS ORDERED: ASPI-1005 PO (14:31)
== END 2023-01-30 14:53 | disposition home or self-care (01) ==
LOC: EDH 08:46
DX: I20.8 Other forms of angina pectoris (principal); J98.01 Acute bronchospasm; R91.8 Other nonspecific abnormal finding of lung field; J44.9 Chronic obstructive pulmonary disease, unspecified; I10 Essential (primary) hypertension; I21.9 Acute myocardial infarction, unspecified; F17.200 Nicotine dependence, unspecified, uncomplicated; Z90.49 Acquired absence of other specified parts of digestive tract; Z79.01 Long term (current) use of anticoagulants; Z79.51 Long term (current) use of inhaled steroids; Z79.52 Long term (current) use of systemic steroids; Z79.899 Other long term (current) drug therapy
CPT/HCPCS: 36415; 71045; 80053; 84484; 85025; 93005; 94640